=== PATIENT | female | born 1975 | race African-American/Black ===

== ENCOUNTER 2020-02-27 05:54 | Emergency (ER) | payer OTHER ==
[~2020-02-27] VITALS: Ht 167.6 cm; Wt 97.5 kg
[2020-02-27] MEDS ORDERED: Morphine Sulfate 4mg/ml Inj (IV USE ONLY) IVP ONE (06:00)
[2020-02-27 06:02] VITALS: BP 136/93
--- NOTE | 2020-02-27 06:04 | Emergency Room Report ---
History of Present Illness General Chief Complaint: Right flank pain Source: Patient Present Illness HPI Disclaimer: Please note that this report is being documented using Et[employer] technology. This can lead to erroneous entry secondary to incorrect interpretation by the dictating instrument. HPI: 44-year-old female presents for evaluation of flank pain. Sudden onset right-sided sharp stabbing flank pain that radiates down the back awoke her from sleep approximately 1 hour ago. Denies prior history of kidney stones, gallbladder disease or similar pain. Denies nausea, vomiting or diarrhea. Denies recent fever or chills. Pain is exacerbated by any motion. Has not yet attempted to urinate. Has not noticed any recent dysuria or hematuria. Pain is been constant since onset. Denies fall or injury. 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 EOMI. Cardiovascular: RRR. S1 and S2 normal. No murmur appreciated Resp: Normal work of breathing. No cough, wheezing or crackles appreciated Abdomen: Abdomen is soft, nondistended. Tenderness palpation in the epigastrium right upper quadrant positive Mariscal's tenderness. No tenderness in the lower quadrants. No rebound. Skin: Intact. No abrasions, laceration or rash over the exposed skin MSK: Normal tone and bulk. Moving all extremities. No obvious deformity. Neuro: Awake and alert. Mentating appropriately. Back: Right-sided CVA tenderness, no tenderness on left Medical Decision Making Diagnostic Impression: Primary Impression: Kidney stone Additional Impression: Fibroid uterus ER Course 44-year-old female presents for evaluation of sudden onset flank pain. Differential includes was not limited to nephrolithiasis, cholecystitis, peptic ulcer disease, gastritis, gastroenteritis, pancreatitis, bowel obstruction, musculoskeletal pain, pyelonephritis, UTI among others. Patient started on IV fluids and pain medication. Broad labs and CT ordered. Labs returned within normal limits.No evidence of clear urinary tract infection, pancreatitis or other significant abnormalities identified. CT scan of the abdomen showed a small faint nonobstructing left renal stone but nothing on the right side to explain the patient's pain. Also findings of fibroid uterus were noted. Ultrasound was ordered for possible gallstones. No gallstones are identified. Biliary structures were unremarkable. Possible the patient had already passed a right-sided kidney stone and is experiencing persistent discomfort. Will discharge home with pain medication and follow-up with PMD. Return precautions discussed. She understands and agrees with this treatment plan. Laboratory Tests Test 02/27/20 06:00 White Blood Count 9.1 K/UL (4.8-10.8) Red Blood Count 4.68 M/UL (4.20-5.40) Hemoglobin 14.0 G/DL (12.0-16.0) Hematocrit 41.4 % (37.0-47.0) Mean Corpuscular Volume 89 FL (80-99) Mean Corpuscular Hemoglobin 30.0 PG (27.0-31.0) Mean Corpuscular Hemoglobin Concent 33.9 G/DL (32.0-36.0) Red Cell Distribution Width 12.9 % (11.6-14.8) Platelet Count 248 K/UL (150-450) Mean Platelet Volume 7.0 FL (6.5-10.1) Neutrophils (%) (Auto) 44.7 % (45.0-75.0) L Lymphocytes (%) (Auto) 43.6 % (20.0-45.0) Monocytes (%) (Auto) 8.4 % (1.0-10.0) Eosinophils (%) (Auto) 1.0 % (0.0-3.0) Basophils (%) (Auto) 2.4 % (0.0-2.0) H Urine Color Yellow Urine Appearance Clear Urine pH 6 (4.5-8.0) Urine Specific [place] 1.025 (1.005-1.035) Urine Protein 1+ (NEGATIVE) H Urine Glucose (UA) Negative (NEGATIVE) Urine Ketones Negative (NEGATIVE) Urine Blood 2+ (NEGATIVE) H Urine Nitrite Negative (NEGATIVE) Urine Bilirubin Negative (NEGATIVE) Urine Urobilinogen 1 MG/DL (0.0-1.0) H Urine Leukocyte Esterase 1+ (NEGATIVE) H Urine RBC 0-2 /HPF (0 - 2) Urine WBC 2-4 /HPF (0 - 2) Urine Squamous Epithelial Cells Few /LPF (NONE/OCC) Urine Bacteria Few /HPF (NONE) Urine Mucus Few /LPF (NONE/OCC) H Urine HCG, Qualitative Negative (NEGATIVE) Sodium Level 142 MMOL/L (136-145) Potassium Level 4.0 MMOL/L (3.5-5.1) Chloride Level 104 MMOL/L (98-107) Carbon Dioxide Level 31 MMOL/L (21-32) Anion Gap 7 mmol/L (5-15) Blood Urea Nitrogen 11 mg/dL (7-18) Creatinine 0.7 MG/DL (0.55-1.30) Estimated Glomerular Filtration Rate > 60 mL/min (>60) Glucose Level 124 MG/DL (74-106) H Calcium Level 8.9 MG/DL (8.5-10.1) Total Bilirubin 0.2 MG/DL (0.2-1.0) Aspartate Amino Transferase (AST) 21 U/L (15-37) Alanine Aminotransferase (ALT) 26 U/L (12-78) Alkaline Phosphatase 65 U/L (46-116) Total Protein 8.1 G/DL (6.4-8.2) Albumin 4.1 G/DL (3.4-5.0) Globulin 4.0 g/dL Albumin/Globulin Ratio 1.0 (1.0-2.7) Lipase 140 U/L (73-393) CT/MRI/US Diagnostic Results CT/MRI/US Diagnostic Results : Impression CT IMPRESSION: 1. Suspect tiny faint nonobstructing left renal calculus. 2. No right renal or ureteral calculus. 3. Nonspecific bowel gas pattern with mild retained stool. 4. No evidence for appendicitis. 5. Probable fibroid uterus. 6. Bibasilar atelectasis/airspace disease. Dictated By: Aarti Gilman MD Electronically Signed By:Aarti Gilman MD Signed Date/Time02/27/20 0742 CC: Nikita,Harish [id number] 0 Last Vital Signs Date Time Temp Pulse Resp B/P (MAP) Pulse Ox O2 Delivery O2 Flow Rate FiO2 02/27/20 05:49 98.6 90 16 124/100 (108) 96 Room Air Disposition: HOME, SELF-CARE Condition: Stable Scripts Ondansetron Odt* (ZOFRAN ODT*) 4 Mg Tab.rapdis 4 MG BC EVERY 6 HOURS PRN for Nausea & Vomiting, #10 TAB 0 Refills Prov: Harish Shelton MD 02/27/20 Hydrocodone Bit/Acetaminophen 5-325* (NORCO 5-325 TABLET*) 1 Each Tablet 1 TAB ORAL Q6H PRN for FOR PAIN, #10 TAB 0 Refills Prov: Harish Shelton MD 02/27/20 Ibuprofen* (MOTRIN*) 600 Mg Tablet 600 MG ORAL Q6H PRN for For Pain, #30 TAB 0 Refills Prov: Harish Shelton MD 02/27/20 Harish Shelton MD Feb 27, 2020 06:04
[2020-02-27 06:16] LABS: BASOPHILS % (AUTO) 2.4 % (0.0-2.0); HEMATOCRIT 41.4 % (37.0-47.0); LYMPHOCYTES % (AUTO) 43.6 % (20.0-45.0); MEAN CORPUSCULAR VOLUME 89 FL (80-99); MONOCYTES % (AUTO) 8.4 % (1.0-10.0); NEUTROPHILS % (AUTO) 44.7 % (45.0-75.0); PLATELET COUNT 248 K/UL (150-450); RED BLOOD COUNT 4.68 M/UL (4.20-5.40); RED CELL DISTRIBUTION WIDTH 12.9 % (11.6-14.8); WHITE BLOOD COUNT 9.1 K/UL (4.8-10.8)
[2020-02-27 06:25] LABS: ANION GAP 7 mmol/L (5-15); BLOOD UREA NITROGEN 11 mg/dL (7-18); CALCIUM 8.9 MG/DL (8.5-10.1); CARBON DIOXIDE 31 MMOL/L (21-32); CHLORIDE 104 MMOL/L (98-107); CREATININE 0.7 MG/DL (0.55-1.30); SODIUM 142 MMOL/L (136-145)
[2020-02-27 06:31] LABS: ALANINE AMINOTRANSFERASE 26 U/L (12-78); ALBUMIN 4.1 G/DL (3.4-5.0); ALKALINE PHOSPHATASE 65 U/L (46-116); ASPARTATE AMINO TRANSFERASE 21 U/L (15-37); BILIRUBIN,TOTAL 0.2 MG/DL (0.2-1.0)
[2020-02-27 06:37] LABS: APPEARANCE,URINE CLEAR; BILIRUBIN, URINE NEGATIVE (NEGATIVE); GLUCOSE, URINE (UA) NEGATIVE (NEGATIVE); KETONES,URINE NEGATIVE (NEGATIVE); LEUKOCYTE ESTERASE ,URINE 1+ (NEGATIVE); NITRITE,URINE NEGATIVE (NEGATIVE); PH,URINE 6 (4.5-8.0); PROTEIN,URINE 1+ (NEGATIVE); UROBILINOGEN,URINE 1 MG/DL (0.0-1.0)
[2020-02-27 06:45] LABS: COLOR,URINE YELLOW
--- NOTE | 2020-02-27 07:42 | Diagnostic Imaging Report ---
EXAM: CT Abdomen and Pelvis Without Intravenous Contrast CLINICAL HISTORY: ABD PAIN TECHNIQUE: Axial computed tomography images of the abdomen and pelvis without intravenous contrast. CTDI is 11.80 mGy and DLP is 626.30 mGy-cm. One or more of the following dose reduction techniques were used: automated exposure control, adjustment of the mA and/or kV according to patient size, use of iterative reconstruction technique. COMPARISON: No relevant prior studies available. FINDINGS: Lung bases: Bibasilar atelectasis/airspace disease, right worse than left. Mediastinum: Small hiatal hernia. ABDOMEN: Liver: Unremarkable. Gallbladder and bile ducts: Unremarkable. No calcified stones. No ductal dilation. Pancreas: Unremarkable. No ductal dilation. Spleen: Unremarkable. No splenomegaly. Adrenals: Unremarkable. No mass. Kidneys and ureters: Faint punctate calcification in the lower left kidney, possible nonobstructing calculus. No right renal or ureteral calcification. Stomach and bowel: Diverticulosis. No CT evidence for acute diverticulitis. Mild retained stool. No obstruction. PELVIS: Appendix: Normal appendix. Bladder: Decompressed bladder. No stones. Reproductive: Lobular enlarged uterus, probable underlying leiomyomatous. IUD present. ABDOMEN and PELVIS: Intraperitoneal space: Small free fluid, nonspecific. No free air. Bones/joints: Mild scoliosis. No acute fracture. No dislocation. Soft tissues: Unremarkable. Vasculature: Unremarkable. No abdominal aortic aneurysm. Lymph nodes: Unremarkable. No enlarged lymph nodes. IMPRESSION: 1. Suspect tiny faint nonobstructing left renal calculus. 2. No right renal or ureteral calculus. 3. Nonspecific bowel gas pattern with mild retained stool. 4. No evidence for appendicitis. 5. Probable fibroid uterus. 6. Bibasilar atelectasis/airspace disease.
[2020-02-27] MEDS ORDERED: Morphine Sulfate 2mg/ml Inj(IV/IM USE ONLY) IVP ONE (08:00)
[2020-02-27] MEDS ORDERED: Ketorolac 30mg Inj IV ONE (08:00)
[2020-02-27 08:19] VITALS: BP 132/96
[2020-02-27] MEDS ORDERED: ONDANSETRON ODT4 MG BC (09:24)
[2020-02-27] MEDS ORDERED: IBUPROFEN600 M1 ORAL (09:24)
[2020-02-27] MEDS ORDERED: NORCO 5-325 TA1 EAC1 ORAL (09:24)
[2020-02-27 09:33] VITALS: BP 129/91
--- NOTE | 2020-02-27 09:38 | Diagnostic Imaging Report ---
EXAM: ULTRASOUND US ABD Complete CLINICAL HISTORY: Abdominal pain. COMPARISON: None TECHNIQUE: Ultrasound examination of the abdomen includes grayscale images, and color and spectral doppler analysis. FINDINGS: The liver and spleen are homogeneous. The gallbladder is without sludge or stone. Common bile duct measures 3 mm. The pancreas is unremarkable to the extent visualized. There are a few small echogenic nonshadowing foci noted in the renal cortex bilaterally. These may be perivascular fat. No hydronephrosis seen bilaterally. Aorta and cava are within normal limits. IMPRESSION: NO SIGN OF ACUTE DISEASE.
== END 2020-02-27 09:36 | disposition home or self-care (01) ==
LOC: EDBD 05:54 → EMR 06:03
DX: N20.0 Calculus of kidney (principal); D25.9 Leiomyoma of uterus, unspecified
CPT/HCPCS: 36415; 74176; 76700; 80053; 81003; 81025; 83690; 85025; 96361; 96374; 96375; 96376; J1885; J2270; J2405; J7030; Z7502; 99284